=== PATIENT | male | born 1985 | race Hispanic/Latino ===

== ENCOUNTER 2020-09-15 14:06 | Emergency (ER) | payer BC ==
[2020-09-15] MEDS ORDERED: Proparacaine 0.5% Opth 15 ML BOT ONE (14:18)
[2020-09-15] MEDS ORDERED: Fluorescein Opthalmic Strip ONE (14:18)
== END 2020-09-15 14:45 | disposition home or self-care (01) ==
LOC: CSHERS 14:06
DX: T15.11XA Foreign body in conjunctival sac, right eye, initial encounter (principal)
CPT/HCPCS: 65210

== ENCOUNTER 2024-06-15 11:15 | Outpatient (CLI) | payer OTHER | END 2024-06-15 11:16 | disposition home or self-care (01) | LOC: CSHCT 11:15 | PROVIDERS: ATTEND Internal Medicine | DX: J32.9 Chronic sinusitis, unspecified (principal) ==

== ENCOUNTER → 2024-12-30 | Emergency (ER) | payer OTHER | LOC: CSHERS 19:21 | DX: Z53.21 Procedure and treatment not carried out due to patient leaving prior to being seen by health care provider (principal) ==